=== PATIENT | male | born 1940 | race Caucasian/White ===

== ENCOUNTER → 2018-06-14 | Outpatient (CLI) | payer BC ==
[~2018-06-14] MED LIST: ASPIRIN E.C. 8181 MG PO; BRILINTA90 MG PO; CLONAZEPAM0.5 MG PO; DOXYCYCLINE 10100 MG PO; LIPITOR 40MG TA40 MG PO; MUCINEX 60600 MG/TA1 PO; NITROSTAT0.4 MG/TAB SL; RHINOCORT0.032 MG/1 NS; TOPROL XL 50MG50 MG PO; ZYRTEC 10MG10 MG PO
== END ==
LOC: MC.RAD 13:50
DX: N63.42 Unspecified lump in left breast, subareolar (principal)

== ENCOUNTER 2021-11-19 13:09 | Emergency (ER) | payer BC ==
[~2021-11-19] VITALS: Ht 172.7 cm; Wt 90.0 kg
[2021-11-19 13:23] VITALS: TEMP 98.9
[2021-11-19 14:11] LABS: HEMATOCRIT 45.1 % (42.0-52.0); HEMOGLOBIN 15.7 g/dl (13.5-18.0); MEAN CELL VOLUME 96 fl (80.0-100.0); MEAN CORPUSCULAR HEMOGLOBIN 34 pg (27-31); MEAN CORPUSCULAR HGB CONC 35 g/dl (33.0-37.0); MEAN PLATELET VOLUME 9.9 fl (7.4-10.4); PLATELET COUNT 243 K/mm3 (130-400); RED BLOOD COUNT 4.68 M/mm3 (4.20-5.60); REDCELL DISTRIBUTION WIDTH-CV 14.6 % (11.5-14.5)
[2021-11-19 14:26] LABS: BAND 4 % (0-10); EOSINOPHIL 3 % (0-4); LYMPHOCYTE 18 % (20.0-51.0); NEUTROPHILS 51 % (42.0-75.2); PLATELET ESTIMATE NORMAL (NORMAL)
[2021-11-19 14:36] LABS: ALANINE AMINOTRANSFERASE 24 U/L (0-55); ALBUMIN 3.6 gm/dL (3.4-4.8); ALKALINE PHOSPHATASE 137 U/L (40-150); ANION GAP 12 mmol/L (7-16); AST,SGOT 33 U/L (5-34); BILIRUBIN,TOTAL 1.5 mg/dL (0.2-1.2); BLOOD UREA NITROGEN 15 mg/dL (8-26); CALCIUM 8.3 mg/dL (8.4-10.2); CARBON DIOXIDE 18 mmol/L (23-31); CHLORIDE 104 mmol/L (98-107); CREATININE, serum 0.98 mg/dL (0.72-1.25); GLUCOSE 92 mg/dL (70-99); POTASSIUM 4.3 mmol/L (3.5-4.5); SODIUM 134 mmol/L (136-145); TOTAL PROTEIN 7.3 gm/dL (6.2-8.1)
[2021-11-19 14:44] LABS: TROPONIN-I < 0.010 ng/mL (0.00-0.033)
[2021-11-19] MEDS ORDERED: PAXLOVID CO-PA1 EACH PO (15:19)
[2021-11-19 15:29] VITALS: BP 106/56; PULSE 79
== END 2021-11-19 15:29 | disposition home or self-care (01) ==
LOC: COL.ER 13:09
PROVIDERS: Personal Emergency Response Attendant
DX: U07.1 COVID-19 (principal); F17.290 Nicotine dependence, other tobacco product, uncomplicated; Z73.0 Burn-out; Z28.310 Unvaccinated for COVID-19